=== PATIENT | female | born 1955 | race African-American/Black ===

== ENCOUNTER → 2019-01-26 | Outpatient (CLI) | payer OTHER ==
[~2019-01-26] VITALS: Ht 165.1 cm; Wt 119.8 kg
[~2019-01-26] MED LIST: ASPIR 8181 MG PO; MAGOX 400400 MG PO; MOBIC15 MG PO; PRAVACHOL40 MG PO; PROAIR HFA8.5 GM INH; REQUIP 1 MG TABL1 M1 PO; SYNTHROID100 MC1 PO; VITAMIN D32000 UNIT PO
--- NOTE | ~2019-01-26 | P ---
[facility] [place] [address] PROCEDURE REPORT Name: ANDREW JACOBS [id number] Admission: 01/26/19 ������������������ Attend Phys: Reynaldo Mccormick Discharge: ������������������ Date of : 51 Report #: [id number] THIS REPORT FOR: //name// CC: Reynaldo Garrett MD DATE OF SERVICE: 01/26/2019 PROCEDURE PERFORMED: Colonoscopy with polypectomies. HISTORY OF PRESENT ILLNESS: The patient is a 63-year-old female who presents today for routine 5-year followup colonoscopy with a history of polyps in the past. She denies any symptoms. No family history of colon cancer. DESCRIPTION OF PROCEDURE: The risks and benefits of the procedure were explained to the patient, those risks including but not limited to bleeding, perforation, the risk of sedation. She understood these risks and gave informed consent. Sedation was given using propofol per anesthesia. Next, a digital rectal exam was initially performed, which was normal. Next, using a standard Olympus colonoscope, the scope was placed in the patient's anus and advanced under direct vision to the cecum. The overall prep was excellent. The cecum and ileocecal valve were normal in appearance. In the proximal ascending colon, an 8 mm sessile polyp was noted. This was removed by snare cautery. Diverticulosis was noted throughout the ascending, transverse, descending and sigmoid colon, no evidence of inflammation. The rectal mucosa was normal. On retroflexion, no abnormalities were noted. The scope was then withdrawn and the procedure terminated. The patient tolerated the procedure well. IMPRESSION: 1. Colonic polyp. 2. Pruett diverticulosis. 3. Otherwise, normal colonoscopy. RECOMMENDATIONS: 1. Await biopsy results. 2. Repeat colonoscopy in 5 years. Thank you for allowing me to participate in her care. ��������������������������������������������� ���������������������������������������� By: ��������������������������������������������� 0947 0255 Reynaldo Rios MD /nt
--- NOTE | 2019-01-30 13:14 | PATH ---
[facility] [address] [place] [address] PATHOLOGY RPT PROCEDURE Name: ANDREW JACOBS Room #: REG [facility].#: [id number] ������������������ Admission: 01/26/19 ������������������ Date of : 51 Discharge: Report #: [id number] Path Case #: [id number] Accession Number: [id number] . 01 Material submitted: . ASCENDING COLON POLYP . 01 Clinical history: . Pre-OP DX: Hx of polyp Post-OP DX: Diverticulosis, polyp . 02 Diagnosis: Polyp, ascending colon polyp, endoscopic biopsy: - Tubular adenoma. - Negative for high-grade dysplasia. 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 02 Electronically signed: . Deirdre Bush MD, Pathologist NPI- [id number] . 01 Gross description: . Received in formalin labeled "Ed, Andrew, ascending colon polyp," is a 0.8 x 0.5 x 0.4 cm polypoid piece of duarte soft tissue. The margin is inked and the specimen is sectioned perpendicular to the margin and entirely submitted in cassette A1. (TSD; 01/26/2019) TOB/TOB . 02 Pathologist provided ICD-10: D12.2 . 02 CPT . 534440 Specimen Comment: A courtesy copy of this report has been sent to Specimen Comment: [phone], . Specimen Comment: Report sent to and Performed at: [address], [place] [id number] MD Richmond Sultana MD Phone: [phone] Performed at: [address] [id number] MD Deirdre Bush MD Phone: [phone]
== END ==
LOC: GI 12-29 14:09
DX: Z12.11 Encounter for screening for malignant neoplasm of colon (principal); K63.5 Polyp of colon; Z86.010 Personal history of colon polyps; K57.30 Diverticulosis of large intestine without perforation or abscess without bleeding; Z68.41 Body mass index [BMI] 40.0-44.9, adult; G25.81 Restless legs syndrome; G47.30 Sleep apnea, unspecified; M19.90 Unspecified osteoarthritis, unspecified site; Z98.890 Other specified postprocedural states; Z90.710 Acquired absence of both cervix and uterus
CPT/HCPCS: 62110; 62900

== ENCOUNTER 2019-01-28 10:30 | Inpatient (IN) | payer OTHER ==
[~2019-01-28] VITALS: Ht 165.1 cm; Wt 121.1 kg
[2019-01-28 10:31] VITALS: BP 146/72
[2019-01-28 10:50] LABS: URINE BILIRUBIN NEGATIVE (Negative); URINE BLOOD 3+ (Negative); URINE CLARITY SL CLOUDY; URINE COLOR YELLOW; URINE GLUCOSE-RANDOM* NEGATIVE (Negative); URINE KETONES NEGATIVE (Negative); URINE NITRITE-REFLEX NEGATIVE (Negative); URINE PROTEIN (DIPSTICK) NEGATIVE (Negative); URINE SPECIFIC GRAVITY <= 1.005 (1.005-1.035); URINE UROBILINOGEN 0.2 E.U./dl (0.2-1.0)
[2019-01-28 10:51] LABS: URINE LEUKOCYTES-REFLEX 2+ (Negative)
[2019-01-28 10:57] LABS: SQUAMOUS >10 Many /LPF (0-3)
[2019-01-28 10:58] LABS: BACTERIA-REFLEX 1-9 Few /HPF (None Seen); CASTS None Seen /LPF (None Seen); CRYSTALS None Seen /LPF (None Seen); URINE RBC 3-10 Few /HPF (0-2); URINE WBC-REFLEX 6-15 Few /HPF (0-5)
[2019-01-28 11:03] LABS: HEMATOCRIT 40.8 % (37.0-47.0); HEMOGLOBIN 13.7 gm/dL (12.0-15.0); MCH 30.5 pg (26.0-34.0); MCHC 33.6 g/dL (28.0-37.0); MCV 90.6 fL (80.0-100.0); PLATELET COUNT 229 thou/uL (150-400); RDW 12.8 % (10.5-14.5); WBC 16.6 thou/uL (4.0-11.0)
[2019-01-28 11:09] LABS: CALCIUM 8.7 mg/dL (8.5-10.1); CREATININE 1.1 mg/dL (0.6-1.0); POTASSIUM 3.8 mmol/L (3.5-5.1)
[2019-01-28 11:23] LABS: ALBUMIN 3.7 g/dL (3.4-5.0); TOTAL BILIRUBIN 1.5 mg/dL (<0.1-1.0); TOTAL PROTEIN 7.5 g/dL (6.4-8.2)
[2019-01-28 11:25] LABS: ABSOLUTE NEUTROPHILS 12.6 thou/uL (1.4-8.2); ANISOCYTOSIS 1+; POLYCHROMASIA OCCASIONAL
[2019-01-28 12:17] VITALS: BP 150/66
[2019-01-28 13:10] VITALS: BP 148/69
--- NOTE | 2019-01-28 16:08 | NUR ---
PT ARRIVED TO ROOM FROM ED AT 13:14 IN STABLE CONDITION. C/O RIGHT RADIATING FLANK/ABD/BACK PAIN 04/30, PAIN MEDS GIVEN ORDERED. ADMISSION ASSESSMENT COMPLETED. A&O,X4. DENIES N/V/D. ROOM AIR. NO SOA OR CHEST PAIN. SKIN INTACT. DR. RICHARDSON PAGED X2, WAITING FOR CALL BACK TO RESTART HOME MEDS AND GET PAIN MEDS RE-ORDERED. HX SLEEP APNEA, PT USING CPAP AT NIGHT AT HOME. FAMILY AT BEDSIDE. WILL CONTINUE TO MONITOR.
[2019-01-28 17:07] VITALS: BP 111/56
--- NOTE | 2019-01-28 18:00 | NUR ---
DR. LEVINEVA NEW ORDERS FOR MEDS AND AM LABS. NO OTHER CHANGE IN STATUS.
[2019-01-28 19:24] VITALS: BP 133/58
[2019-01-29 04:57] LABS: HEMATOCRIT 36.7 % (37.0-47.0); HEMOGLOBIN 11.9 gm/dL (12.0-15.0); MCHC 32.3 g/dL (28.0-37.0); MCV 92.7 fL (80.0-100.0); RBC 3.96 mil/uL (4.20-5.00); RDW 13.2 % (10.5-14.5); WBC 12.1 thou/uL (4.0-11.0)
[2019-01-29 05:02] VITALS: BP 121/59
[2019-01-29 05:15] LABS: CALCIUM 8.4 mg/dL (8.5-10.1); CREATININE 1.3 mg/dL (0.6-1.0); POTASSIUM 3.7 mmol/L (3.5-5.1); TOTAL BILIRUBIN 1.9 mg/dL (<0.1-1.0); TOTAL PROTEIN 6.6 g/dL (6.4-8.2)
--- NOTE | 2019-01-29 06:39 | NUR ---
A/O, vss, afebrile. C/o pain in right flank, pain medication given and worked. Cpap on, bed rest.
[2019-01-29 08:42] VITALS: BP 162/80
--- NOTE | 2019-01-29 12:08 | NUR ---
PT ADMITTED RELATED TO DIVERTICULITIS. CM REVIEWED CHART AND SPOKE WITH CARE TEAM. CM MET WITH PT AT BEDSIDE THIS DAY. PT IS A&O X4. CM ROLE INTRODUCED. PT INDICATED SHE LIVES IN AN APARTMENT WITH HER DTR WITH NO STEPS TO ENTER. PT HAS AN ELEVATOR TO ACCESS. PT INDICATED SHE HAD A FWW, CANE, AND RAISED TOILET SEAT FOR HOME USE. 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 PT INDICATED NO HH HX. PT INDICATED SHE PLANS TO RETURN HOME ONCE MEDICALLY STABLE. CM TO FOLLOW INDICATED WITH DC PLANNING. CARE TEAM INDICATED PT MAY [facility] TO [facility].
[2019-01-29 17:11] VITALS: BP 115/61
[2019-01-29 19:19] VITALS: BP 127/48
[2019-01-29 21:07] VITALS: BP 133/74
--- NOTE | 2019-01-30 04:52 | NUR ---
Pt transferred to unit approx 2030. A/OX4,up ad dmitriy with steady gait noted.VSS. C/o pain to right flank/abd LOP 7/10 with relief reported after pain meds administration. Voiding without any problems voiced, reports flatus. Denies any N/V and reports poor appetite but drinking adequate amount of water.Saline lock patent in LAC,abts administered as ordered without any problems. Resting with eyes closed no distress CPAP on. Will continue to monitor pt.
[2019-01-30 06:45] LABS: HEMATOCRIT 35.7 % (37.0-47.0); HEMOGLOBIN 11.9 gm/dL (12.0-15.0); MCH 30.8 pg (26.0-34.0); MCHC 33.4 g/dL (28.0-37.0); MCV 92.3 fL (80.0-100.0); RBC 3.87 mil/uL (4.20-5.00); RDW 13.1 % (10.5-14.5); WBC 7.9 thou/uL (4.0-11.0)
[2019-01-30 06:56] LABS: CALCIUM 8.6 mg/dL (8.5-10.1); POTASSIUM 3.7 mmol/L (3.5-5.1)
[2019-01-30 07:45] VITALS: BP 94/51
--- NOTE | 2019-01-30 10:01 | H ---
[facility] [place] [address] HISTORY AND PHYSICAL Name: ANDREW JACOBS Room #: 223-P [facility] IN M.R.#: [id number] Admission: 01/28/19 ������������������ Attend Phys: Doug Garrett MD Discharge: ������������������ Date of : 51 Report #: [id number] THIS REPORT FOR: //name// CC: Doug Laureano DATE OF SERVICE: 01/28/2019 CHIEF COMPLAINT: Abdominal pain. HISTORY OF PRESENT ILLNESS: The patient is a 63-year-old female who came to the Emergency Room with right-sided abdominal pain. She had some nausea and right flank and back pain with fever. A CT in the ER has revealed ascending colon diverticulitis. Overnight, she has received IV antibiotics with some improvement of her pain. She had recently undergone a colonoscopy with polyp removal. There were no signs of perforation on CT. PAST MEDICAL HISTORY: Obstructive sleep apnea, on CPAP. Dyslipidemia, asthma. PAST SURGICAL HISTORY: None. FAMILY HISTORY: Noncontributory. SOCIAL HISTORY: She lives at home. No chronic alcohol or tobacco use. ALLERGIES: VITAMIN D, ASPIRIN, LEVOXYL, REQUIP, PRAVASTATIN, PROAIR. REVIEW OF SYSTEMS: Denies headache, chest pain, shortness of breath, nausea, vomiting, diarrhea, constipation, dysuria, syncope. OBJECTIVE: VITAL SIGNS: Temperature 36.8, pulse 80, respirations 18, blood pressure 162/80, O2 sat 98% on room air. GENERAL: She is awake and alert, resting in bed. HEAD AND NECK: Unremarkable. LUNGS: Clear. HEART: Regular. ABDOMEN: Soft, normoactive bowel sounds. Tender in the right flank. No rebound or guarding. EXTREMITIES: No edema. NEUROLOGIC: Motor strength 5/5 throughout. LABORATORY DATA: White count is 12, hemoglobin 11.9. CT shows diverticulitis of the ascending colon. ASSESSMENT: Acute diverticulitis. Formerly [facility] [address] [place] [address] HISTORY AND PHYSICAL Name: ANDREW JACOBS Room #: 223-P [facility] IN [facility]#: [id number] Admission: 01/28/19 ������������������ Attend Phys: Doug Garrett MD Discharge: ������������������ Date of : 51 Report #: [id number] PLAN: IV antibiotics, bowel rest and GI assessment. ��������������������������������������������� <ELECTRONICALLY SIGNED> ���������������������������������������� By: Doug Garrett MD ��������������������������������������������� 01/30/19 1001 1232 1415 Doug Garrett MD /nt
--- NOTE | 2019-01-30 10:43 | NUR ---
SW reviewed chart and spoke with nursing. Pt [facility] and is slowly progressing towards goals for discharge. Diet is being advanced. Plan is for pt to discharge home when medically stable. JERRI is following to assist as needed with discharge planning.
--- NOTE | 2019-01-30 18:01 | NUR ---
PATIENT CARE WAS ASSUMED AT 0715.PATIENT IS ALERT AD ORIENTED X4.PATIENT HAS IV INTACT WITH FLUIDS ARE INFUSING.PATIENT WAS GIVEN PAIN MEDS IN THE AM.NO COMPLAINS AT THIS TIME.PT HAS REQUESTED TO TAKE A SHOWER.PT IS ABLE TO AMBULATE WITH STAND BY ASSIST.PT DIET WAS CHANGED TO FULL LIQUIDS,PT TOLERATED WELL.CALL LIGHT,PHONE, AND PERSONAL BELONGINGS ARE WITHIN REACH.
[2019-01-30 21:12] VITALS: BP 111/54
--- NOTE | 2019-01-31 05:08 | NUR ---
Pt A/OX4.Up ad dmitriy without any problems. VSS.C/o pain to right flank/RLQ medicated per EMAR with some relief reported. No N/V reported so far this shift. Pt just reported she noticed her urine is dark yellow/cloudy as of the last time she voided adviced to save some for nurse to assess and specimen hut placed on the toilet. Pt denies dysuria or any other discomfort when peeing and noted to be taking adequate amount of water. Lab contacted regarding previous UA cx results and stated it showed mixed chani pt updated and agreeable to have nurse urine when she voids. Recieving IV abts without any problems via LAC. K-pad ordered for the flank pain and states it helps some. Resting with no distress noted,CPAP on will continue to monitor pt.
[2019-01-31 08:14] VITALS: BP 104/57
--- NOTE | 2019-01-31 14:32 | NUR ---
SW reviewed chart and spoke with nursing. Pt is progressing towards goals for discharge. Discharge home is anticipated for tomorrow. SW is following to assist as needed with discharge planning.
--- NOTE | 2019-01-31 18:42 | NUR ---
ASSUMED CARE OF PATIENT AT 0715, PATIENT ALERT AND ORIENTED X 4. UP AD MANI IN HER ROOM. PATIENT CONTINUES TO C/O PAIN WITH RIGHT FLANK AREA. LEFT AC IV REMOVED DUE TO INFILTRATION. CHRISTIAN CAME THIS AFTERNOON AND PLACE RIGHT FOREARM IV, PT C/O PAIN WITH FLUSHING, STARTED RUNNING IV ANTIBIOTIC AND ARM SLIGHTLY REDDENED AND SLIGHTLY SWOLLEN, NOTIFIED CHRISTIAN IV TEAM SHE WILL COME BACK TO RESTART IV. PATIENT C/O CONSTIPATION, MIRALAX ORDERED. WILL CONTINUE TO MONITOR.
[2019-01-31 20:21] VITALS: BP 146/60
--- NOTE | 2019-02-01 04:47 | NUR ---
Pt A/OX4,pleasant. Up ad dmitriy. C/o right flank pain LOP 7/10 medicated with [facility] with relief reported. Pt also c/o nausea and a burning sensation on the epigastric area medicated with Zofran with no further complaints reported. Voiding without difficulties. VSS.IV patent on LFA.Resting with eyes closed at this time no distress noted,CPAP. Call light/personal items within reach.Will continue to monitor pt.
[2019-02-01 07:18] LABS: HEMATOCRIT 35.1 % (37.0-47.0); HEMOGLOBIN 11.8 gm/dL (12.0-15.0); MCH 31.1 pg (26.0-34.0); MCHC 33.7 g/dL (28.0-37.0); MCV 92.4 fL (80.0-100.0); RBC 3.8 mil/uL (4.20-5.00); RDW 12.8 % (10.5-14.5); WBC 5.2 thou/uL (4.0-11.0)
[2019-02-01 07:35] LABS: ALBUMIN 2.8 g/dL (3.4-5.0); CALCIUM 8.5 mg/dL (8.5-10.1); CREATININE 1.1 mg/dL (0.6-1.0); POTASSIUM 3.7 mmol/L (3.5-5.1); TOTAL BILIRUBIN 0.6 mg/dL (<0.1-1.0); TOTAL PROTEIN 6.3 g/dL (6.4-8.2)
[2019-02-01 07:54] VITALS: BP 110/51
--- NOTE | 2019-02-01 12:12 | NUR ---
SW reviewed chart and spoke with nursing and attending physician. Pt is not ready for discharge today. CT scan ordered. Discharge plan is for pt to d/c home when medically stable. JERRI is following to assist as needed with discharge planning.
--- NOTE | 2019-02-01 19:22 | NUR ---
ASSUMED CARE OF PATIENT AT 0715, PATIENT ALERT AND ORIENTED X 4.PATIET UP AD MANI, AMBULATED IN HALLWAYS TODAY X 1. PATIENT C/O PAIN WITH RIGHT FLANK AREA, RADIATING DOWN RIGHT LEG. PATIENT RECEIVED HYDROCODONE 1 TABLET AND C/O NAUSEA ZOFRAN 4 MG IV GIVEN, IV ACCESS LEFT FOREARM 22G. PATIENT RECEIVES IV ANTIBIOTICS, IV ANTIBIOTICS CHANGED THIS EVENING BY GI, GENE AND AIDEO IV. WILL CONTINUE TO MONITOR.
[2019-02-01 19:57] VITALS: BP 142/63
--- NOTE | 2019-02-02 00:38 | NUR ---
Pt A/OX4,up ad dmitriy without problems in room. Orders noted from for pt to be NPO r/t microperforation,pt updated about orders and agreeable. C/o pain to right flank with partial relief from pain meds. No c/o nausea so far. IV abts infusing at this time, had to re-insert another PIV LAC. VSS.Voiding without any problem reported.Resting at this time eyes closed with no distress noted CPAP on.Will continue to monitor pt.
[2019-02-02 07:30] VITALS: BP 105/55
--- NOTE | 2019-02-02 09:53 | NUR ---
Assess due to high BMI of 44.4=extreme class III obesity. S/P polypectomy and also with diverticulitis and microperforation. Diet had been advanced but now npo again following CT results. On IVF. Low nutrition risk but follow for ability to timely readvance diet again
--- NOTE | 2019-02-02 09:59 | NUR ---
PATIENT WAS ASSUMED AT 0715.PATIENT IS ALERT AND ORIENTED X4.PATIENT HS PAIN IN ABD ARE 10/10 WAS GIVEN PAIN MEDS WITH SIP OF WATER.PATIENT HAS IV FLUIDS INFUSING.PT HAS HAD SMALL BM IN THE AM.PT IS RESTING IN CHAIR.CALL LIGHT, PHONE, AND PERSONAL BELONGINGS ARE WITHIN REACH.
--- NOTE | 2019-02-02 12:39 | NUR ---
SW reviewed chart and spoke with nursing and attending physician. Pt is NPO per GI. Pt remains on IV abx. Plan is for pt to discharge home when medically stable. JERRI is following to assist as needed with discharge planning.
[2019-02-02 20:52] VITALS: BP 117/46
--- NOTE | 2019-02-02 21:20 | NUR ---
VASCULAR ACCESS CONSULTED FOR A PICC FOR AIDEO. A 4FRSLPICC PLACED RUABRACHIAL WITHOUT DIFF. PLEASE SEE DETAILS IN INSERTION INTERVENTION
--- NOTE | 2019-02-03 04:01 | NUR ---
PATIENT ALERT AND ORIENTED X4. FAMILY AT BEDSIDE UNTIL LATE. UP ADLIB IN ROOM. MEDICATED FOR PAIN X1 AT TIME OF NOTE. COOPERATIVE WITH CARE. IVF INFUSING W/O COMPLICATION ALONG WITH ABX. WILL MONITOR. RESTING QUIETLY.
[2019-02-03 06:40] LABS: HEMATOCRIT 35.1 % (37.0-47.0); HEMOGLOBIN 11.8 gm/dL (12.0-15.0); MCHC 33.7 g/dL (28.0-37.0); RBC 3.82 mil/uL (4.20-5.00); RDW 13.1 % (10.5-14.5); WBC 6.5 thou/uL (4.0-11.0)
[2019-02-03 06:50] LABS: CALCIUM 8.4 mg/dL (8.5-10.1); CREATININE 1.6 mg/dL (0.6-1.0); POTASSIUM 3.9 mmol/L (3.5-5.1)
[2019-02-03 09:00] VITALS: BP 101/63
--- NOTE | 2019-02-03 10:43 | NUR ---
ASSUMED PT CARE AT 0700. ASSESSMENT COMPLETED AND IS CHARTED. VSS. PT AWAKE,ALERT/ORIENTED X4. REPORTS PAIN TO RIGHT ABD. RATED 4/10. HYDROCODONE GIVEN. DENIES NAUSEA. TOLERATING CLEAR LIQUIDS WELL. PT UP AD MANI IN ROOM. GAVE HERSELF SPONGE BATH. PICC TO RIGHT UPPER ARM IS ASYMPTOMATIC AND POSITIVE FOR BLOOD RETURN. FLUIDS INFUSING. PT REPORTS BOWEL MOVEMENT YESTERDAY AFTER MIRALAX GIVEN. REPORTS STILL HAVING GAS. NO OTHER NEW CONCERNS AT THIS TIME. WILL CONTINUE CURRENT CARE.
--- NOTE | 2019-02-03 13:36 | NUR ---
CONSULTED TO REPLACE PICC TO ADD MORE LUMENS FOR MULTIPLE IV ANTIBIOTICS THAT ARE NONCOMPATABLE. ORDER AND CONSENT NOTED. THE PROCEDURE EXPLAINED TO THE PATIENT AND SHE VERBALIZED UNDERSTANDING. A TRIPLE LUMEN PICC WAS PLACED VIA EXCHANGE/OTW TO REPLACE THE SINGLE LUMEN. THE PATIENT TOLERATED WELL. LINE IS NOW 47CM AND CONFIRMED BY RADIOLOGY TO BE AT THE [facility]AVO ATRIAL JUNCTION. LINE RELEASED FOR USE
--- NOTE | 2019-02-03 14:23 | NUR ---
PT DOING WELL THIS SHIFT. PAIN CONTROLLED WITH PO MEDS. TOLERATING CLEAR LIQUID DIET WELL. UP AND AROUND IN ROOM. PICC LINE WAS EXCHANGED FOR TRIPLE LUMEN DUE TO INCOMPATIBLE MEDS. NO OTHER CONCERNS OR COMPLAINTS AT THIS TIME. WILL CONTINUE TO MONITOR.
--- NOTE | 2019-02-03 17:48 | NUR ---
ASSUMED PT CARE AT 1720. PT RESTING IN BED. NO NEEDS OR CONCERNS AT THIS TIME. WILL CONTINUE WITH CURRENT CARE.
--- NOTE | 2019-02-03 17:50 | NUR ---
DISREGARD PREVIOUS NOTE IT WAS WRITTEN IN ERROR.
--- NOTE | 2019-02-03 17:57 | NUR ---
PT REPORTS SEVERAL LOOSE STOOLS TODAY THOUGH SHE SAYS THEY ARE STARTING TO RETURN TO NORMAL. UP WALKING HALLS. PAIN CONTROLLED. CONTINUES TO TOLERATE CLEAR LIQUIDS WELL.
[2019-02-03 19:22] VITALS: BP 151/82
--- NOTE | 2019-02-04 04:22 | NUR ---
PATIENT ALERT AND ORIENTED X4. UP ADLIB IN ROOM AND HALLWAY. IVF INFUSING W/O COMPLICATION ALONG WITH IVPB'S. RT TREATMENTS AND CPAP AT NIGHT. VANCO TROUGH WAS 22 ON 02/04/19, HOWEVER, SHE RECEIVED DOSES SCHEDULED. THIS NURSE CALLED PHARMACY AND CONFIRMED ADMINISTRATION OF NIGHT DOSE OF 750MG WHICH WAS GRANTED. NEXT TROUGH 02/04/19 AT 2330. MEDICATED FOR PAIN. C/O PASTY STOOLS. RESTING QUIETLY. WILL MONITOR.
[2019-02-04 09:15] VITALS: BP 146/70
--- NOTE | 2019-02-04 16:46 | NUR ---
ASSUMED CARE OF PATIENT AT 0715, PATIENT ALERT AND ORIENTED X 4. UP AD MANI. PATIENT C/O PAIN WITH RIGHT FLANK AREA, 03/30. HYDROCODONE 1 TABLET GIVEN THIS AM, PATIENT HAD GOOD RELIEF. PATIENT DENIES NAUSEA SO FAR THIS SHIFT. PATIENT HAS RIGHT TRIPLE LUMEN PICC LINE IN PLACE WITH D1/2 NS WITH 20 KCL AT 100CC/HR. PATIENT RECEIVES IV ANTIBIOTICS THIS SHIFT. PATIENT HAVING SMALL EPISODES OF DIARRHEA, NO PROBLEM WITH VOIDING. WILL CONTINUE TO MONITOR.
[2019-02-04 19:26] VITALS: BP 147/83
--- NOTE | 2019-02-05 03:17 | NUR ---
PATIENT ALERT AND ORIENTED X4. IVF INFUSING W/O COMPLICATION. UP ADLIB IN ROOM. CPAP AT NIGHT. CONTINUES TO HAVE LOOSE STOOLS. VANCO TROUGH WAS DRAWN BY THIS NURSE AT 2330 ON 02/04/19 WITH THE RESULT OF 22 PER LAB AT 0004 (KEV CHAVES). THIS NURSE CONTACTED PHARMACY AT 0006 AND A PHARMACIST RETURNED MY CALL AT 0009 STATING THAT HE WOULD CHANGE THE DOSEAGE OF THE VANCOMYCIN AND SEND THE MEDICATION TO ME. THIS WAS RECEIVED AT 0145 AND ADMINISTERED TO THE PATIENT DIRECTLY. PHARMACY INSTRUCTED TO HAVE A VANCO TROUGH DRAWN BEFORE NEXT DOSE GIVEN TODAY. AT TIME OF NOTE PATIENT HAS BEEN MEDICATED FOR PAIN X1 DURING THE NIGHT. WILL MONITOR.
--- NOTE | 2019-02-05 10:07 | NUR ---
SW reviewed chart and spoke with nursing. Pt remains on IV abx and is slowly advancing diet. Pt is on full liquids. Discharge plan is for pt to return home when medically stable. JERRI is following to assist as needed with discharge planning.
[2019-02-05 13:41] LABS: HEMATOCRIT 36.1 % (37.0-47.0); MCH 30.5 pg (26.0-34.0); MCHC 33.2 g/dL (28.0-37.0); MCV 91.9 fL (80.0-100.0); RBC 3.92 mil/uL (4.20-5.00); RDW 13.4 % (10.5-14.5)
[2019-02-05 13:48] LABS: CALCIUM 8.4 mg/dL (8.5-10.1); CREATININE 1.6 mg/dL (0.6-1.0); POTASSIUM 3.6 mmol/L (3.5-5.1)
[2019-02-05 19:38] VITALS: BP 163/87
--- NOTE | 2019-02-05 20:06 | NUR ---
ASSUMED CARE OF PATIENT AT 0715, PATIENT ALERT AND ORIENTED X 4. PATIENT UP AT MANI. PATIENT C/O PAIN X 1 THIS SHIFT WITH ABDOMEN AREA, HYDROCODONE 1 TABLET GIVEN THIS SHIFT. PATIENT HAS RIGHT TL PICC LINE, PATIENT C/O DISCOMFORT WITH RIGHT TL PICC LUMEN. THIS RN NOTIFIED IV TEAM/NASIMA, SHE CAME AND CHANGED DRESSING AND FLUSHED WITH CATH DANIEL, ALL LINE ARE WORKING WITH BLOOD RETURN. PATIENT HAVING SMALL LOOSE STOOLS EACH TIME SHE VOIDS. NO C/O NAUSEA THIS SHIFT. DIET UP GRADED TO REGULAR/FIBER RESTRICTED. PATIENT HAS COATING ON HER TONGUE, NYSTATIN ORDERED EVERY 6 HOURS. WILL CONTINUE TO MONITOR.
--- NOTE | 2019-02-06 05:50 | NUR ---
PATIENTS CARES WERE ASSUMED AT SHIFT CHANGE. PATIENT WAS ASSESSED AND MEDS WERE PASSED. HOURLY ROUNDS WERE DONE. PATIENT DID APPER TO SLEEP MOST OF THIS SHIFT, SHE DID WEAR HER CPAP AND APPERED TO BE RESTFUL. ANTIBIOTIC WERE GIVEN, ONE FELL BEHIND DUE TO A DISRUPTION IN THE FLOW OF IV FLUIDS. PATIENT BACK ON TRACK BY 0600. PATIENT BED ALARM IS ON DUE TO STAND BY ASSIST. THE BED IS IN A LOW AND LOCKED POSITION
[2019-02-06 07:15] LABS: HEMATOCRIT 34.2 % (37.0-47.0); HEMOGLOBIN 11.3 gm/dL (12.0-15.0); MCH 30.4 pg (26.0-34.0); MCHC 33.2 g/dL (28.0-37.0); MCV 91.6 fL (80.0-100.0); RBC 3.73 mil/uL (4.20-5.00); RDW 13.3 % (10.5-14.5); WBC 7.8 thou/uL (4.0-11.0)
[2019-02-06 07:24] LABS: CALCIUM 8.3 mg/dL (8.5-10.1); CREATININE 1.7 mg/dL (0.6-1.0); POTASSIUM 3.5 mmol/L (3.5-5.1)
[2019-02-06 08:00] VITALS: BP 135/78
--- NOTE | 2019-02-06 16:20 | NUR ---
SW reviewed chart and spoke with nursing. Pt is slowly progressing towards goals for discharge. Pt remains on IV abx. Awaiting recommendations from GI. Plan is for pt to d/c home when medically stable. SW is following to assist as needed with discharge planning.
[2019-02-06 19:05] VITALS: BP 172/85
--- NOTE | 2019-02-06 19:19 | NUR ---
ASSUMED CARE OF PATIENT AT 0715, PATIENT ALERT AND ORIENTED X 4. PATIENT UP AD MANI IN HER ROOM. PATIENT C/O PAIN WITH RIGHT FLANK AREA THIS AM, 3/10, BUT DID NOT WANT PAIN MEDS THIS AM. PATIENT UPSET CAUSE ORDER FOR NPO IN THE COMPUTER, BUT AFTER TALKING WITH MELQUIADES DAWN/SCIENTIFIC ILLUSTRATOR IT WAS A MISTAKE. PATIENT'S IV ANTIBIOTICS ON HOLD, HAVE BEEN SWITCHED TO PO TONIGHT. PATIENT HAS RIGHT TL PICC LINE WITH D51/2 NS WITH 20 KCL AT 100CC/HR. PATIENT DIET REGULAR FIBER RESTRICTED, TOLERATED WELL NO C/O NAUSEA THIS SHIFT. PATIENT MAY DISCHARGE TO HOME IF STABLE. WILL CONTINUE TO MONITOR. PATIENT STILL HAVING LOOSE STOOLS.
--- NOTE | 2019-02-07 05:43 | NUR ---
PATIENT ALERT AND ORIENTED X4. C/O SORE THROAT. HOT TEA GIVEN PER PATIENT'S REQUEST. STATED THAT IT HELPED. PATIENT ALSO GETS NYSTATIN SWISH AND SWALLOW . PATIENT C/O NO OTHER PAIN. SLEPT OFF AND ON DURING NIGHT. IV FLUIDS RUNNING IN RDL PICC. ALL LUMENS ON PICC DRAW AND FLUSH.
[2019-02-07 05:47] LABS: HEMATOCRIT 32.9 % (37.0-47.0); HEMOGLOBIN 11.2 gm/dL (12.0-15.0); MCH 31.1 pg (26.0-34.0); MCHC 33.9 g/dL (28.0-37.0); MCV 91.8 fL (80.0-100.0); RBC 3.59 mil/uL (4.20-5.00); RDW 13.3 % (10.5-14.5); WBC 8.7 thou/uL (4.0-11.0)
[2019-02-07 06:08] LABS: CREATININE 1.6 mg/dL (0.6-1.0); POTASSIUM 3.7 mmol/L (3.5-5.1)
[2019-02-07 07:59] VITALS: BP 156/77
--- NOTE | 2019-02-07 08:03 | NUR ---
ASSUMED PT CARE AT 0700. ASSESSMENT COMPLETED AND IS CHARTED. VSS. PT IS AWAKE, ALERT/ORIENTED X4. DENIES PAIN JUST STATES HER ABD IS UNCOMFORTABLE. ABD IS SOFT WITH ACTIVE BS. PT DENIES NAUSEA. STILL HAVING SOME DIARRHEA BUT HAS DECREASED. PICC LINE TO RIGHT UPPER ARM ASYMPTOMATIC, DRESSING CDI. FLUIDS INFUSING. WILL SEE HOW PT TOLERATES SOLID FOOD FOR BREAKFAST. WILL CONTINUE WITH CURRENT CARE.
[2019-02-07] MEDS ORDERED: FLUCONAZOLE 10100 MG PO (12:28)
[2019-02-07] MEDS ORDERED: CIPRO500 MG PO (12:28)
[2019-02-07] MEDS ORDERED: METRONIDAZOLE500 M4 PO (12:31)
[2019-02-07 13:13] VITALS: BP 156/77
--- NOTE | 2019-02-07 14:38 | NUR ---
DISCHARGE NOTE: JERRI reviewed chart and spoke with nursing. Pt is medically stable for discharge home today. Orders written for pt to have HH services. JERRI met with pt and family at bedside to discuss discharge plan. Pt is aware and agreeable with discharge plan. Options provided for HH agencies. No preference voiced. JERRI verified pt's home address: [address] [place], [place] [id number]. Phone number: [phone]. Pt's PCP is Dr. Carlo Grant. exercise planner to fax referral to [facility]. JERRI notified [facility] liaison of new referral. JERRI is following to finalize discharge.
--- NOTE | 2019-02-07 17:31 | NUR ---
DISCHARGE INSTRUCTIONS GIVEN TO PATIENT. PICC LINE REMOVED. DISMISSED PT IN STABLE CONDITION HOME VIA [facility] [employer].
--- NOTE | 2019-02-20 15:54 | D ---
[facility] [place] [address] DISCHARGE SUMMARY Name: ANDREW JACOBS Room #: 223-P [facility] IN M.R.#: [id number] Admission: 01/28/19 ������������������ Attend Phys: Doug Garrett MD Discharge: 02/07/19 ������������������ Date of : 51 Report #: [id number] THIS REPORT FOR: //name// CC: Doug Laureano FINAL DIAGNOSIS: Colitis. HOSPITAL COURSE: The patient was admitted with abdominal pain. She was treated empirically for colitis in the ascending colon. The GI service followed her post her colonoscopy, one day prior to admission. She was having slow response to antibiotics as evidenced by continued abdominal pain and elevated white count. Antibiotics were switched. She had a followup CT. This suggested the second exam a microperforation. However, there were no signs or symptoms of an acute abdomen. She did not require surgical intervention. She was placed on bowel rest and with another 48 hours, her symptoms were improving. Her white count normalized. The last hospital day, she was tolerating a soft diet, fiber-restricted and oral antibiotics. PHYSICAL EXAMINATION: GENERAL: On the day of discharge, she was awake and alert with stable vital signs and afebrile. LUNGS: Clear. HEART: Regular. ABDOMEN: Soft, normoactive bowel sounds with just slight tenderness of the right flank. No rebound or guarding. EXTREMITIES: No edema. PLAN: As mentioned, her white count had normalized. Her creatinine was down to 1.6, which felt was an elevation related to Zosyn. DISPOSITION: She will be discharged to home with low fiber diet. ACTIVITY: As tolerated. FOLLOWUP: Follow up with Dr. Rios in 2 weeks, myself in 1 week for lab work. MEDICATIONS: She will resume home medicines plus Cipro and Flagyl for 3 more days. ��������������������������������������������� <ELECTRONICALLY SIGNED> ���������������������������������������� By: Doug Garrett MD ��������������������������������������������� 02/20/19 1554 1322 1338 Doug Garrett MD /nt
== END 2019-02-07 17:31 | disposition home health service (06) | DRG 392 ==
LOC: ER 10:30 → 4E 12:43 → EROBS 12:43 → SICU 12:43 → 4E 13:18 → SICU 01-29 20:54 → ENTRNSPT 02-07 17:27 → SICU 02-07 17:31
PROVIDERS: Emergency Medicine; Internal Medicine; Nurse Practitioner; Nurse Practitioner Family; ADMIT Internal Medicine Geriatric Medicine
DX: K57.20 Diverticulitis of large intestine with perforation and abscess without bleeding (principal); N39.0 Urinary tract infection, site not specified; Z68.41 Body mass index [BMI] 40.0-44.9, adult; K52.9 Noninfective gastroenteritis and colitis, unspecified; G25.81 Restless legs syndrome; M19.90 Unspecified osteoarthritis, unspecified site; E89.0 Postprocedural hypothyroidism; G47.33 Obstructive sleep apnea (adult) (pediatric); N28.9 Disorder of kidney and ureter, unspecified; E78.5 Hyperlipidemia, unspecified; J45.909 Unspecified asthma, uncomplicated; K59.00 Constipation, unspecified; E66.9 Obesity, unspecified; Z86.010 Personal history of colon polyps; Z90.710 Acquired absence of both cervix and uterus; Z79.899 Other long term (current) drug therapy; Z88.6 Allergy status to analgesic agent; Z88.8 Allergy status to other drugs, medicaments and biological substances; E86.0 Dehydration
CPT/HCPCS: 10084; 15002; 27000

== ENCOUNTER 2019-03-14 17:47 | Emergency (ER) | payer OTHER ==
[~2019-03-14] VITALS: Ht 165.1 cm; Wt 117.9 kg
[~2019-03-14 17:47] MED LIST changes: +CIPRO500 MG PO; +FLUCONAZOLE 10100 MG PO; +METRONIDAZOLE500 M4 PO
[2019-03-14 18:07] LABS: URINE BILIRUBIN NEGATIVE (Negative); URINE BLOOD 1+ (Negative); URINE CLARITY CLEAR; URINE COLOR YELLOW; URINE GLUCOSE-RANDOM* NEGATIVE (Negative); URINE KETONES NEGATIVE (Negative); URINE LEUKOCYTES-REFLEX NEGATIVE (Negative); URINE NITRITE-REFLEX NEGATIVE (Negative); URINE PROTEIN (DIPSTICK) NEGATIVE (Negative); URINE UROBILINOGEN 0.2 E.U./dl (0.2-1.0)
[2019-03-14 18:17] LABS: BACTERIA-REFLEX 1-9 Few /HPF (None Seen); CASTS None Seen /LPF (None Seen); CRYSTALS None Seen /LPF (None Seen); SQUAMOUS 4-10 Moderate /LPF (0-3); URINE RBC 3-10 Few /HPF (0-2); URINE WBC-REFLEX 0-5 Rare /HPF (0-5)
[2019-03-14 18:46] LABS: ABSOLUTE NEUTROPHILS 5.6 thou/uL (1.4-8.2); BASOPHILS 1.1 % (0.0-2.0); EOSINOPHILS 2.6 % (0.0-3.0); HEMATOCRIT 40.9 % (37.0-47.0); HEMOGLOBIN 13.6 gm/dL (12.0-15.0); LYMPHOCYTES 23.4 % (24.0-44.0); MCH 30.2 pg (26.0-34.0); MCHC 33.2 g/dL (28.0-37.0); MCV 91.1 fL (80.0-100.0); MONOCYTES 9.7 % (1.0-8.0); PLATELET COUNT 216 thou/uL (150-400); POLYS 63.2 % (36.0-66.0); RBC 4.49 mil/uL (4.20-5.00); RDW 13.2 % (10.5-14.5); WBC 8.8 thou/uL (4.0-11.0)
[2019-03-14 18:56] LABS: CALCIUM 9.3 mg/dL (8.5-10.1); CREATININE 1.1 mg/dL (0.6-1.0); POTASSIUM 3.9 mmol/L (3.5-5.1)
[2019-03-14 19:02] LABS: ALBUMIN 4.2 g/dL (3.4-5.0); TOTAL BILIRUBIN 0.8 mg/dL (<0.1-1.0)
[2019-03-14] MEDS ORDERED: CIPROFLOXACIN500 M1 PO (21:22)
[2019-03-14] MEDS ORDERED: FLAGYL500 M1 PO (21:22)
[2019-03-14] MEDS ORDERED: ULTRAM 50MG TAB50 MG PO (21:27)
[2019-03-14 21:44] VITALS: BP 122/49
== END 2019-03-14 21:50 | disposition home or self-care (01) ==
LOC: ER 17:47
PROVIDERS: Emergency Medicine
DX: K57.32 Diverticulitis of large intestine without perforation or abscess without bleeding (principal); G47.30 Sleep apnea, unspecified; G25.81 Restless legs syndrome; E89.0 Postprocedural hypothyroidism; M19.90 Unspecified osteoarthritis, unspecified site; Z90.710 Acquired absence of both cervix and uterus; Z90.721 Acquired absence of ovaries, unilateral

== ENCOUNTER 2019-03-16 20:42 | Emergency (ER) | payer OTHER ==
[~2019-03-16] VITALS: Ht 165.1 cm; Wt 117.9 kg
[~2019-03-16 20:42] MED LIST changes: +CIPROFLOXACIN500 M1 PO; +FLAGYL500 M1 PO; +ULTRAM 50MG TAB50 MG PO
[2019-03-16] MEDS ORDERED: AUGMENTIN 875-1 EACH PO (21:09)
[2019-03-16 21:45] LABS: HEMATOCRIT 40.4 % (37.0-47.0); HEMOGLOBIN 13.3 gm/dL (12.0-15.0); MCH 30.2 pg (26.0-34.0); MCV 91.6 fL (80.0-100.0); PLATELET COUNT 199 thou/uL (150-400); RBC 4.41 mil/uL (4.20-5.00); RDW 13.1 % (10.5-14.5); WBC 7.8 thou/uL (4.0-11.0)
[2019-03-16 21:51] LABS: CALCIUM 9.5 mg/dL (8.5-10.1); CREATININE 1.2 mg/dL (0.6-1.0); POTASSIUM 3.9 mmol/L (3.5-5.1)
[2019-03-16 21:58] LABS: ALBUMIN 4.1 g/dL (3.4-5.0); DIRECT BILIRUBIN 0.1 mg/dL (<0.1-0.3); TOTAL BILIRUBIN 0.6 mg/dL (<0.1-1.0); TOTAL PROTEIN 7.6 g/dL (6.4-8.2)
[2019-03-16 22:41] LABS: ABSOLUTE NEUTROPHILS 3.9 thou/uL (1.4-8.2); ATYPICAL LYMPHS 1 %
[2019-03-17] MEDS ORDERED: BENTYL 20 MG TA20 M1 PO (01:45)
[2019-03-17] MEDS ORDERED: ZOFRAN ODT4 MG PO (01:45)
[2019-03-17 02:00] VITALS: BP 103/62
--- NOTE | 2019-03-18 13:26 | EKG ---
[place] [address] [place] [address] ELECTROCARDIOGRAM REPORT Name: ANDREW JACOBS Room #: [facility]#: [id number] ������������������ Admission: 03/16/19 ������������������ Attend Phys: Discharge: 03/17/19 ������������������ Date of : 51 Report #: [id number] ����������������������������������������������������������������� [id number] THIS REPORT FOR: //name// [facility] ED Test Date: 2019-03-16 Test Time: 20:52:52 Pat Name: ANDREW JACOBS Department: Room: Gender: F Rn Endocrinology: claritza : 1955 Requested By: Ashley Castro Order Number: [id number] MD: Nikhil Martinez Measurements Intervals [place] Rate: 68 P: -23 CO: 158 QRS: 31 QRSD: 102 T: 15 QT: 411 QTc: 438 Interpretive Statements Sinus rhythm RSR' in V1 or V2, probably normal variant No previous ECG available for comparison Electronically Signed On 03-18-2019 13:26:42 CDT by Nikhil Martinez [email or web address] ��������������������������������������������� <ELECTRONICALLY SIGNED> ���������������������������������������� By: Nikhli Martinez MD, [facility] ��������������������������������������������� 03/18/19 1326 51 51 Nikhil Martinez MD, FACC /EPI
== END 2019-03-17 02:00 | disposition home or self-care (01) ==
LOC: ER 20:42
PROVIDERS: Emergency Medicine
DX: R10.11 Right upper quadrant pain (principal); R11.2 Nausea with vomiting, unspecified; R42 Dizziness and giddiness; G25.81 Restless legs syndrome; G47.30 Sleep apnea, unspecified; E89.0 Postprocedural hypothyroidism; M19.90 Unspecified osteoarthritis, unspecified site; Z90.710 Acquired absence of both cervix and uterus

== ENCOUNTER 2019-03-31 20:09 | Inpatient (IN) | payer OTHER ==
[~2019-03-31] VITALS: Ht 165.1 cm; Wt 117.0 kg
--- NOTE | ~2019-03-31 | HC ---
[facility] [place] [address] CONSULTATION Name: ANDREW JACOBS Oliver Room #: 455-P ADM IN M.R.#: [id number] Admission: 03/31/19 ������������������ Attend Phys: Kristina Serna MD Discharge: ������������������ Date of : 51 Report #: [id number] THIS REPORT FOR: //name// CC: Doug Serna DATE OF SERVICE: 04/03/2019 REASON FOR CONSULTATION: I was asked to evaluate concerning diverticular disease and colon perforation. HISTORY OF PRESENT ILLNESS: The patient was a 63-year-old with known colon polyposis and diverticular disease who underwent a colonoscopy on 01/26/2019. She had a proximal ascending colon polyp that was snared. She also was noted to have diffuse diverticular changes throughout her colon. 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 Other consideration was diverticulitis. There was no evidence of abscess. She had a subsequent CT scan on 02/01/2019, 4 days later, which showed stability of the area. She received IV antibiotic therapy and was discharged then on ciprofloxacin and metronidazole. She received 10 days of IV therapy and was discharged for another week of ciprofloxacin and metronidazole. Three weeks later she returned with recurrent right flank pain, which radiated down to her lower abdomen associated with low-grade fever and chills. She had a followup CT scan, which again showed inflammatory change involving the right colon in the right lower quadrant. She was discharged back on ciprofloxacin and metronidazole. She then returned 2 days later with more pain in her right lower quadrant and was seen in the Emergency Room. Her ciprofloxacin and metronidazole were switched to Augmentin. She took the Augmentin only to return again on the with more abdominal pain. Low-grade fever and leukocytosis was identified. Placed back in the hospital and put on Zosyn and metronidazole. She has remained afebrile, pain still persists in the right lower quadrant. CT scan shows a 2 cm fluid collection posterior to the cecum, ascending colon region. Her stools have been soft. She is able to eat. No nausea or vomiting. She has had no dysuria. Her pain she reports is fairly constant, worse with activity, mostly in the right flank region and right lower quadrant, worse with palpation. No increased pain with food. She has occasional cramping pain across her lower abdomen, which comes and goes. REVIEW OF SYSTEMS: A 10-point review of systems is negative other than what is described above. ALLERGIES: None known. MEDICATIONS: As noted on her MAR, which were reviewed. PAST MEDICAL HISTORY: Restless leg syndrome, obstructive sleep apnea, [address] [address] CONSULTATION Name: ANDREW JACOBS Oliver Room #: 455-P [facility] IN M.R.#: [id number] Admission: 03/31/19 ������������������ Attend Phys: Kristina Serna MD Discharge: ������������������ Date of : 51 Report #: [id number] arthritis, ovarian cyst removal, left breast lumpectomy, colon polyposis, diverticular disease, degenerative arthritis, thyroidectomy and hysterectomy. FAMILY HISTORY: Noncontributory. SOCIAL HISTORY: Nonsmoker, no significant alcohol intake. PHYSICAL EXAMINATION: VITAL SIGNS: She is afebrile and hemodynamically stable. GENERAL: She is alert and cooperative and pleasant, in no acute distress. She was obese. SKIN: Without rash or decubitus. No palpable adenopathy. HEENT: Eyes without scleral icterus. Mouth without mucositis. NECK: Supple, with no thyromegaly or mass appreciated. LUNGS: Clear to auscultation. HEART: Regular, without murmur, gallop or rub. ABDOMEN: Obese, soft, tender in the right lower quadrant. She had no rebound or guarding. She had tenderness in the right flank region. No hepatosplenomegaly or palpable mass. PELVIC: External genitalia and rectal examination not performed. EXTREMITIES: Without clubbing, cyanosis or edema. NEUROLOGIC: Cranial nerves were intact. Strength in upper and lower extremities was normal. Sensation in the upper and lower extremities normal. Mood was normal. LABORATORY STUDIES: Blood cultures are negative. Hemoglobin 11.3, platelet count 201,000, white count 5.9, down from 13,000 on admission. Sodium 142, potassium 3.6, bicarbonate 26, creatinine 1.1. Lactate on admission was 0.7. Urinalysis, few wbc's, few bacteria. CT scan of the abdomen and pelvis as noted above. IMPRESSION: A 63-year-old with ongoing inflammatory change in the cecum and ascending colon region with posterior perforation. All started 2 months ago after a colonoscopy with polypectomy. Whether this is an ongoing weak area from her polypectomy or diverticular disease is not yet proven. With the longstanding issue, I am suspecting this is more diverticular in nature. The polyp was reportedly benign. The patient has seemed to respond reasonably well to intravenous antibiotics, but has failed several courses of oral antibiotic therapy including ciprofloxacin and metronidazole. In this setting, I would recommend continuing with Zosyn as an outpatient until this whole area calms down. We will need serial CT scans, serial laboratory studies and outpatient [address] [address] CONSULTATION Name: ANDREW JACOBS Room #: 455-P [facility] IN .R.#: [id number] Admission: 03/31/19 ������������������ Attend Phys: Kristina Serna MD Discharge: ������������������ Date of : 51 Report #: [id number] surgical followup. I anticipate this area will need to be resected in the near future. ��������������������������������������������� ���������������������������������������� By: ��������������������������������������������� 1912 [id number] Dhaval Luna MD /nt
--- NOTE | ~2019-03-31 | D ---
[facility] [place] [address] [place] [address] DISCHARGE SUMMARY Name: ANDREW JACOBS Room #: 455-P [facility] IN M.R.#: [id number] Admission: 03/31/19 ������������������ Attend Phys: Kristina Serna MD Discharge: 04/04/19 ������������������ Date of : 51 Report #: [id number] THIS REPORT FOR: //name// CC: Doug Serna DATE OF SERVICE: 04/04/2019 FINAL DIAGNOSES: Diverticulitis of intestine and abscess of the right hemicolon. HOSPITAL COURSE: The patient was admitted with abdominal pain and CT showed diverticulitis and an area of small abscess in the right ascending colon near the cecum. She was considered for IR drainage of drain, but they felt the area was too small to pursue with interventional procedure. Dr. Don from general surgery followed her and felt that medical management was appropriate. I asked Dr. Dhaval Luna to give an opinion regarding length of IV antibiotic treatment with a course of Zosyn and Flagyl. Her pain improved significantly. She was tolerating a diet, walking in the rooms and her other home medications were continued. DISPOSITION: She will be discharged to home with regular diet and activity as tolerated. Follow up with ga and Dr. Luna in [address] Don in 2-3 weeks. She will continue IV Zosyn at home, outpatient program. ��������������������������������������������� ���������������������������������������� By: ��������������������������������������������� [id number] Doug Garrett MD /girma
[~2019-03-31 20:09] MED LIST changes: +AUGMENTIN 875-1 EACH PO; +BENTYL 20 MG TA20 M1 PO; +ZOFRAN ODT4 MG PO
[2019-03-31 20:26] VITALS: BP 138/86
[2019-03-31 20:43] LABS: URINE BILIRUBIN NEGATIVE (Negative); URINE BLOOD 2+ (Negative); URINE CLARITY CLEAR; URINE COLOR YELLOW; URINE GLUCOSE-RANDOM* NEGATIVE (Negative); URINE KETONES NEGATIVE (Negative); URINE LEUKOCYTES 2+ (Negative); URINE NITRITE NEGATIVE (Negative); URINE PROTEIN (DIPSTICK) NEGATIVE (Negative); URINE SPECIFIC GRAVITY <= 1.005 (1.005-1.035); URINE UROBILINOGEN 0.2 E.U./dl (0.2-1.0)
[2019-03-31 20:50] LABS: BACTERIA 1-9 Few /HPF (None Seen); CASTS None Seen /LPF (None Seen); MUCUS None Seen strn/LPF (None Seen); SQUAMOUS 4-10 Moderate /LPF (0-3); URINE RBC 0-2 Rare /HPF (0-2); URINE WBC 6-15 Few /HPF (0-5)
[2019-03-31 20:50] LABS: HEMATOCRIT 39.2 % (37.0-47.0); MCH 29.8 pg (26.0-34.0); MCV 90.2 fL (80.0-100.0); PLATELET COUNT 227 thou/uL (150-400); RBC 4.35 mil/uL (4.20-5.00); WBC 13.4 thou/uL (4.0-11.0)
[2019-03-31 20:51] LABS: CRYSTALS None Seen /LPF (None Seen)
[2019-03-31 20:57] LABS: CALCIUM 9.1 mg/dL (8.5-10.1); CREATININE 1.2 mg/dL (0.6-1.0); POTASSIUM 3.6 mmol/L (3.5-5.1)
[2019-03-31 21:03] LABS: ALBUMIN 3.7 g/dL (3.4-5.0); DIRECT BILIRUBIN 0.2 mg/dL (<0.1-0.3); TOTAL BILIRUBIN 1.2 mg/dL (<0.1-1.0); TOTAL PROTEIN 7.5 g/dL (6.4-8.2)
[2019-03-31 21:17] LABS: ABSOLUTE NEUTROPHILS 7.6 thou/uL (1.4-8.2)
[2019-03-31 23:17] VITALS: BP 138/86
[2019-03-31 23:50] VITALS: BP 151/79
--- NOTE | 2019-04-01 02:43 | NUR ---
NEW ADMISSION FOR ABD PAIN. PAIN CONTROLLED THIS SHIFT. PATIENT AOX4 MAKES NEEDS KNOWN. PATIENT AMBULATES TO THE BATHROOM WITH STEADY GAITS. PATIENT INCONTINENT OF BOTH BOWEL AND BLADDER. PATIENT USES C PAP AT NIGHT, FAMIY WILL BRING C PAP TONIGHT. PAIN CONTROLLED THIS SHIFT. PATIENT IN BED ASLEEP AT THIS TIME BREATHING REGULAR AND UNLABOURED.
[2019-04-01 07:34] VITALS: BP 116/62
[2019-04-01 15:49] VITALS: BP 134/66
--- NOTE | 2019-04-01 17:03 | NUR ---
Received awake on bed. A+Ox4. Complains of abdominal pain, medication given as prescribed, with partial pain relief. CPAP machine to be brought from home as handed over, RT informed and ordered on system. Patient seen by Dr. Don, to do IR Drainage of abscess tomorrow- requested. Patient seen by Dr. Serna, antibiotics resumed. With IV at Right AC, patent and intact. Maintained on NPO, offered ice chips and mouth swabs. Vital signs stable. Visited by relatives today.
[2019-04-01 21:07] VITALS: BP 139/80
--- NOTE | 2019-04-02 01:51 | NUR ---
ASSUMED CARE AROUND 1900. AXOX4. KEPT NPO FOR IR DRAIN TOMORROW AM. PAIN MANAGED PER MD ORDER. NO S/S ACUTE DISTRESS NOTED OR REPORTED AT THIS TIME. WILL CONT TO MONITOR FOR ANY CHANGES IN CONDITION.
[2019-04-02 03:58] VITALS: BP 130/56
[2019-04-02 07:10] LABS: INR 1.1; PROTIME 11.6 Seconds (9.3-11.4)
[2019-04-02 07:25] VITALS: BP 132/60
[2019-04-02 09:08] LABS: HEMATOCRIT 33.8 % (37.0-47.0); HEMOGLOBIN 11.1 gm/dL (12.0-15.0); MCH 30.1 pg (26.0-34.0); MCHC 32.9 g/dL (28.0-37.0); MCV 91.3 fL (80.0-100.0); RBC 3.71 mil/uL (4.20-5.00); RDW 12.9 % (10.5-14.5); WBC 7.5 thou/uL (4.0-11.0)
--- NOTE | 2019-04-02 09:16 | NUR ---
Nutrition: Pt admitted for diverticulitis with intra abdominal abcess. Seen for high nutrition risk. Was admitted in January for diverticulitis. Wt upon January admission 267 lbs, current 258 lbs-3.4% favorable loss due to BMI 42.9=class III Obesity. Pt states appetite and intake was normal until 03/30 when pain started. NPO for IR drainage of abcess and possible surgery. Requested education on diverticulosis/diverticulitis, will provide. Low nutrition risk however monitor for timely diet advancement.
[2019-04-02 09:20] LABS: CALCIUM 8.4 mg/dL (8.5-10.1); CREATININE 1.2 mg/dL (0.6-1.0); POTASSIUM 3.8 mmol/L (3.5-5.1)
--- NOTE | 2019-04-02 13:56 | NUR ---
PT ADMITTED RELATED TO ABD PAIN. CM REVIEWED CHART AND SPOKE WITH CARE TEAM. CM MET WITH PT AND FAMILY AT BEDSIDE THIS DAY. PT IS A&O X4. CM ROLE INTRODUCED. PT INDICATED SHE LIVES IN AN APARTMENT WITH HER DTR WITH ELEVATOR ACCESS. PT INDICATED SHE HAS A CANE AND A FWW TO ASSIST WITH MOBILITY. PT INDICATED NO HOME HEALTH HISTORY. PT HAS CPAP FOR HOME USE. PT INDICATED SHE PLANS TO RETURN HOME ONCE MEDICALLY STABLE. CM TO FOLLOW INDICATED WITH DC PLANNING.
[2019-04-02 16:21] VITALS: BP 143/69
--- NOTE | 2019-04-02 16:33 | NUR ---
Received awake on bed. With IV at R AC, patent and infusing well. Patient for JOSE baez of [facility] today-consent signed. IR called back, sasha cancelled for today. Dr. Garrett came to see patient, asked if patient to be maintained on NPO- to ask Surgeon. Called Dr. Don/Dr. Munoz- will see patient later. Offered ice chips/oral swab. Complained of pain, due meds given with partial pain relief. Maintained on NPO.
--- NOTE | 2019-04-03 02:27 | NUR ---
ASSUMED CARE AROUND 1900. AXOX4. IR PROCEDURE NEVER HAPPENED. SURGERY NOT GOING BE DONE PER SURGEON . DIET CHANGED TO REGULAR AND PAIN MEDS CHANGED TO TORALDOL FROM [facility]. PT VERBALIZES RELIEF OF ABD PAIN WITH TORADOL. NO S/S ACUTE DISTRESS NOTED OR REPORTED AT THIS TIME. WILL CONT TO MONITOR FOR ANY CHANGES IN CONDITION.
[2019-04-03 03:45] VITALS: BP 143/63
[2019-04-03 05:30] LABS: HEMATOCRIT 34.3 % (37.0-47.0); HEMOGLOBIN 11.3 gm/dL (12.0-15.0); MCHC 32.9 g/dL (28.0-37.0); MCV 91.1 fL (80.0-100.0); RBC 3.77 mil/uL (4.20-5.00); RDW 12.9 % (10.5-14.5); WBC 5.9 thou/uL (4.0-11.0)
[2019-04-03 05:41] LABS: CALCIUM 8.4 mg/dL (8.5-10.1); CREATININE 1.1 mg/dL (0.6-1.0); POTASSIUM 3.6 mmol/L (3.5-5.1)
--- NOTE | 2019-04-03 16:03 | H ---
[facility] [place] [address] [place] [address] HISTORY AND PHYSICAL Name: ANDREW JACOBS Room #: 455-P ADM IN M.R.#: [id number] Admission: 03/31/19 ������������������ Attend Phys: Kristina Serna MD Discharge: ������������������ Date of : 53 Report #: [id number] THIS REPORT FOR: //name// CC: Doug Serna DATE OF SERVICE: 03/31/2019 CHIEF COMPLAINT: Lower abdominal pain and lethargy with fever. HISTORY OF PRESENT ILLNESS: The patient is a 63-year-old lady who presented to the ER complaining of having low-grade fever and lethargy. The patient reports that this started about 3 days ago and was progressively getting worse. She does have a history of diverticulitis and a bout of infection following colonoscopy on 01/26/2019. The patient has received 2 rounds of antibiotics and CT scan done about 2 weeks ago showed improvement of the infection. The patient denied having any diarrhea or any blood in her stools. The patient does complain of having intermittent abdominal pain since the initial infection. The patient had a repeat CT of the abdomen done, which showed evidence of diverticulitis on the right side around the cecum and ascending colon along with localized abscess in that area. PAST MEDICAL HISTORY: Significant for history of restless leg syndrome, sleep apnea and the recent colonoscopy with diverticulitis. PAST SURGICAL HISTORY: Left breast lumpectomy, ovarian cyst removal, thyroidectomy and hysterectomy. MEDICATIONS: She is not known to be on any medication. Medication she currently on was, recently was on Cipro and metronidazole, tramadol for pain, and Zofran along with dicyclomine and Requip, pravastatin, albuterol inhaler, and aspirin. SOCIAL HISTORY: She does not smoke, does not drink alcohol. REVIEW OF SYSTEMS: She does complain of having some mild confusion and lethargy. She denied having any breathing difficulty. The patient did report that she was using a CPAP machine. Denied having any blood in her stools. PHYSICAL EXAMINATION: GENERAL: Pleasant elderly lady who is in moderate distress secondary to lower abdominal pain. She was awake, alert to place and person. VITAL SIGNS: She was afebrile this morning with a temperature of 36.8, pulse of 62, respiratory rate 18, blood pressure is 116/62, oxygen saturation 98% on room air. HEENT: Skull was atraumatic. There is no pallor, no icterus. Mucosa was [address] [address] HISTORY AND PHYSICAL Name: ANDREW JACOBS Room #: 455-P [facility] IN [facility]#: [id number] Admission: 03/31/19 ������������������ Attend Phys: Kristina Serna MD Discharge: ������������������ Date of : 51 Report #: [id number]. NECK: Supple. LUNGS: Clear to auscultation bilaterally with no wheezes or crackles. HEART: First and second normal. ABDOMEN: The patient had tenderness in the lower part of abdomen and localized tenderness in the right lower quadrant. There was no guarding or rigidity. Bowel sounds sluggish. EXTREMITIES: Did not reveal any edema. NEUROLOGIC: Nonfocal. LABORATORY DATA: On admission showed a sodium of 135, potassium 3.6, chloride 101, bicarbonate of 25, BUN was 14, creatinine of 1.2 and a glucose of 104. White cell count was 13.4, hemoglobin was 13, hematocrit 39.2 and a platelet count of 227. Urine was clear. CT abdomen showed evidence of hepatic and renal cysts, which were not infected and there was pericolonic fat stranding in the level of the cecum and ileocecal valve with a small rim enhancing collection of fluid and gas measuring 2 cm x 1.5 cm x 2 cm along the posterior margin of the cecum suggestive of small abscess. ASSESSMENT: 1. Diverticulitis with intra-abdominal abscess. 2. Obstructive sleep apnea. 3. Restless leg syndrome. 4. Hyperlipidemia. 5. Osteoarthritis. PLAN: To keep her n.p.o., continue with IV antibiotics and control her abdominal pain. We will also have a surgical opinion regarding her intra-abdominal abscess and consult GI service. ��������������������������������������������� <ELECTRONICALLY SIGNED> ���������������������������������������� By: Kristina Serna MD ��������������������������������������������� 04/03/19 [id number] Kristina Serna MD /nt
[2019-04-03 17:14] VITALS: BP 171/74
[2019-04-03 19:33] VITALS: BP 134/67
--- NOTE | 2019-04-03 19:45 | NUR ---
PT A&OX4, VSS, PAIN IN RIGHT UPPER QUADRANT AT 6 AND MANAGED WITH TORADOL. PT RECEIVING INTERMITTENT ANTIBIOTICS. PT STABLE NO SIGNS OF DISTRESS, USES CALL LIGHT APPROPRIATELY. WILL CONTINUE TO MONITOR.
[2019-04-04 04:30] VITALS: BP 151/74
[2019-04-04 06:03] LABS: HEMATOCRIT 36.3 % (37.0-47.0); HEMOGLOBIN 11.8 gm/dL (12.0-15.0); MCH 29.4 pg (26.0-34.0); MCHC 32.5 g/dL (28.0-37.0); MCV 90.6 fL (80.0-100.0); RDW 12.7 % (10.5-14.5); WBC 5.3 thou/uL (4.0-11.0)
[2019-04-04 06:12] LABS: CALCIUM 8.6 mg/dL (8.5-10.1); POTASSIUM 3.7 mmol/L (3.5-5.1)
--- NOTE | 2019-04-04 07:00 | NUR ---
Assumed care at 1845. Pt resting in bed. AOX4. VSS. Only gave toradol one time for pain. No identified needs at the moment. Call light within reach. Will continue to monitor.
[2019-04-04 08:02] VITALS: BP 151/63
[2019-04-04] MEDS ORDERED: SYNTHROID100 MC1 PO (12:18)
[2019-04-04] MEDS ORDERED: NORCO 7.5-3251 EACH PO (12:18)
--- NOTE | 2019-04-04 12:28 | NUR ---
CARE TEAM INDICATE THAT PT IS MEDICALLY STABLE TO DISCHARGE HOME THIS DAY WITH HOME IV ABX. CM MET WITH PT AT BEDSIDE THIS DAY AND SHE INDICATED NO PARTICULAR PREFERENCE FOR PROVIDER FOR HOME INFUSION OR HOME HEALTH SERVICES. CM SENT REFERRAL TO [facility] CM KNOWS THEY TAKE PT'S INSURANCE. THEY INDICATED THAT PT'S OUT OF POCKET COST WILL BE &[phone]. CM NOTIFIED PT AND SHE INDICATED THAT BETWEEN HER AND HER MOTHER SHE WILL BE ABLE TO AFFORD THAT. PT WAS HAVING HER PIC LINE PLACED. VANESSA WITH [facility] WILL DO BEDSIDE TEACH. REFERRAL BEING SENT TO [facility] FOR HH NURSING. CM TO FOLLOW TO ENSURE DC SERVICES.
--- NOTE | 2019-04-04 13:00 | NUR ---
PT A&OX4, VSS, NO SIGNS OF DISTRESS. PT DENIES N/V/D, PAIN AT 5 IN UPPER RIGHT ABDOMEN AND STATES SHE CAN MANAGE WITHOUT PAIN MEDICATION AND WILL NOTIFY THIS NURSE IF PAIN BECOMES UNBERARABLE. IV IN RIGHT AC SLIPPED OUT, NEW ORDER FOR PICC TO BE PLACED, SO PT CAN CONTINUE IV ABX AT HOME. WILL CONTINUE TO MONITOR.
--- NOTE | 2019-04-04 13:50 | NUR ---
DISCHARGE PLANNING. PATIENT IS READY FOR DISCHARGE TODAY. WILL NEED HOME HEALTH SERVICES AND IV ANTIBIOTIC INFUSION. [facility] TO PROVIDE IV ANTIBIOTIC SERVICES. REFERRAL FAXED TO [facility] FOR [facility] HEALTH NEEDS. CALL PLACED TO [facility] INTAKE, SPOKE WITH ILIR. ILIR STATED THAT [facility] WAS NOT ABLE TO SERVICE PATIENT HH NEEDS, OUT OF NETWORK WITH HER PROVIDER. UNIT SW NOTIFIED. FOLLOWING.
[2019-04-04 14:45] VITALS: BP 151/63
[2019-04-04 15:29] VITALS: BP 151/63
[2019-04-04 15:55] VITALS: BP 127/98
--- NOTE | 2019-04-04 16:41 | NUR ---
CONSULTED TO PLACE A PICC FOR A PATIENT NEEDING HOME IV ANTIBIOTICS. ORDER AND CONSENT NOTED.THE PROCEDURE WELL BENIFITS AND RISK OF DVT AND INFECTION DISCUSSED WITH THE PATIENT AND SHE VERBALIZED UNDERSTANDING. A #4F SINGLE LUMEN PICC ATTEMPTED PER HOSPITAL POLICY, UNABLE TO CANNULATE VEIN AFTER MULTIPLE ATTEMPTS THE PROCEDURE WAS ABORTED. A NEW KIT OBTAINED AND THE LEFT ARM ASSESSED. THE LEFT UPPER ARM BASILIC WAS WIDLEY PATENT. A #4F SINGLE LUMEN POWER PICC WAS PLACED AFTER A BEDSIDE TIMEOUT WAS COMPLETED. PICC WAS TRIMMED TO 48CM AND ADVANCED WITHOUT DIFFICULTY. LINE SECURED PER POLICY. A STAT CHEST XRAY CONFIRMED LINE WAS AT THE CAVOATRIAL JUNCTION AND IN GOOD POSITION FOR USE
--- NOTE | 2019-04-04 19:14 | NUR ---
PT DISCHARGED HOME WITH HOME HEALTH. PT HAD PICC PLACED AND WILL RECIEVE IV ANTIBIOTICS AT HOME.
== END 2019-04-04 19:15 | disposition home health service (06) | DRG 862 ==
LOC: ER 20:09 → 4W 23:01 → EROBS 23:01 → 4W 23:50 → ENTRNSPT 04-04 17:24 → 4W 04-04 19:15
PROVIDERS: Internal Medicine Geriatric Medicine; Nurse Practitioner; Radiology Diagnostic Radiology; ADMIT Internal Medicine
PROC: 02HV33Z Insertion of Infusion Device into Superior Vena Cava, Percutaneous Approach (ICD-10-PCS; principal; 2019-04-03)
DX: T81.40XA Infection following a procedure, unspecified, initial encounter (principal); K65.1 Peritoneal abscess; K57.20 Diverticulitis of large intestine with perforation and abscess without bleeding; Z68.41 Body mass index [BMI] 40.0-44.9, adult; G25.81 Restless legs syndrome; G47.33 Obstructive sleep apnea (adult) (pediatric); M19.90 Unspecified osteoarthritis, unspecified site; E89.0 Postprocedural hypothyroidism; E66.9 Obesity, unspecified; Z90.710 Acquired absence of both cervix and uterus; Z79.2 Long term (current) use of antibiotics; Z79.899 Other long term (current) drug therapy
CPT/HCPCS: 10040; 27000

== ENCOUNTER → 2019-04-24 | Outpatient (CLI) | payer OTHER ==
[~2019-04-24] MED LIST changes: +NORCO 7.5-3251 EACH PO
== END ==
LOC: CAT 07:56
DX: K57.92 Diverticulitis of intestine, part unspecified, without perforation or abscess without bleeding (principal); N32.89 Other specified disorders of bladder

== ENCOUNTER → 2019-11-16 | Outpatient (CLI) | payer OTHER | LOC: CAT 14:56 | DX: N28.1 Cyst of kidney, acquired (principal); E03.9 Hypothyroidism, unspecified; K76.89 Other specified diseases of liver; K57.30 Diverticulosis of large intestine without perforation or abscess without bleeding; K57.32 Diverticulitis of large intestine without perforation or abscess without bleeding; K42.9 Umbilical hernia without obstruction or gangrene ==